=== PATIENT | male | born 1995 | race Caucasian/White ===

== ENCOUNTER 2024-01-22 19:33 | Emergency (ER) | payer OTHER ==
[2024-01-22] MEDS ORDERED: Ibuprofen 200 MG TAB ONE (19:57)
== END 2024-01-22 20:58 | disposition home or self-care (01) ==
LOC: ERS 19:33
DX: K02.9 Dental caries, unspecified (principal); R09.1 Pleurisy; I10 Essential (primary) hypertension; Z87.891 Personal history of nicotine dependence
CPT/HCPCS: 71045; 93005